=== PATIENT | male | born 1945 | race American Indian/Alaskan Native ===

== ENCOUNTER 2021-08-17 05:56 | Emergency (ER) | payer MEDICARE, OTHER ==
[2021-08-17] MEDS ORDERED: PHENAZOPYRIDINE 200 MG TAB PO ONE (07:03)
[2021-08-17] MEDS ORDERED: cephALEXin 500 MG CAP PO ONE (07:03)
--- NOTE | 2021-08-17 07:03 | Emergency Department Report ---
ED Male HPI - General Chief complaint: Urogenital-Male Stated complaint: PAIN AT ROSA CATHETER SITE Time Seen by Provider: 08/17/21 06:44 Source: patient Mode of arrival: Ambulatory Limitations: No Limitations - History of Present Illness Initial comments: Chief complaint: Irritation and swelling at the catheter site HPI: This is a 75-year-old male with history of CABG, hypertension, lumbar degenerative disc disease who presents with irritation at the Rosa catheter site. Rosa catheter was placed at this hospital while admitted for CHF exacer bation. According to electronic medical record patient was evaluated by urologist while admitted to the hospital service. The radiologist specifically said do not remove Rosa in his treatment plan. Follow-up appointment scheduled for Friday. Patient has irritation at the Rosa site especially with movement. He denies fever abdominal pain or new back pain. MD Complaint: other (Irritation at the Rosa catheter site) -: Gradual Severity: mild Quality: burning Consistency: constant Improves with: none Worsens with: movement denies other symptoms - Related Data Home Medications Medication Instructions Recorded Confirmed Last Taken Aspirin EC [Halfprin EC] 81 mg PO BID 11/21/16 08/13/21 08/10/21 B Complex 1 tab PO DAILY 11/21/16 08/13/21 08/10/21 Cholecalciferol (Vitamin D3) 1,000 unit PO DAILY 11/21/16 08/13/21 08/10/21 Docusate Sodium 100 mg PO BID 11/21/16 08/13/21 08/10/21 Glucosamine & Chondroitin Cap 1 tab PO DAILY 11/21/16 08/13/21 08/10/21 Omega3,5,6,7,9 No.1/[place] Oil 1 cap PO DAILY 11/21/16 08/13/21 08/10/21 [Complete Kite Softgel] Vitamin C 500 mg PO DAILY 11/21/16 08/13/21 08/10/21 Amlodipine Besylate 10 mg PO DAILY 08/10/21 08/13/21 08/09/21 Baclofen 5 mg PO DAILY PRN 08/10/21 08/13/21 08/06/21 Cetirizine HCl 10 mg PO DAILY 08/10/21 08/13/21 08/10/21 Furosemide 20 mg PO DAILY 08/10/21 08/13/21 08/10/21 Latanoprost 0.005% 1 drop OU DAILY 08/10/21 08/13/21 08/09/21 Rosuvastatin (Nf) 40 mg PO HS 08/10/21 08/13/21 08/10/21 Dextran 70/Hypromellose 1 each OP PRN PRN 08/13/21 08/13/21 08/08/21 [Artificial Tears] Ointment Base No.104 [Hydrophilic 1 applic TP BID 08/13/21 08/13/21 08/10/21 Ointment Base] Tamsulosin [Flomax] 0.4 mg PO QDAY 08/13/21 08/13/21 08/09/21 Ubidecarenone [Co Q-10] 200 mg PO QDAY 08/13/21 08/13/21 08/10/21 Previous Rx's Medication Instructions Recorded Last Taken Type carvediloL [Coreg] 3.125 mg PO BID@0800,1700 #60 08/13/21 Unknown Rx tablet hydrALAZINE [Apresoline TAB] 50 mg PO Q8HR #90 tablet 08/13/21 Unknown Rx Phenazopyridine [Pyridium] 200 mg PO TID 2 Days #6 tab 08/17/21 Unknown Rx cephALEXin [Keflex] 500 mg PO TID 7 Days #21 capsule 08/17/21 Unknown Rx Allergies Allergy/AdvReac Type Severity Reaction Status Date / Time No Known Allergies Allergy Verified 08/13/21 10:09 ED Review of Systems ROS: Stated complaint: PAIN AT ROSA CATHETER SITE Other details as noted in HPI Comment: All other systems reviewed and negative Constitutional: denies: chills, fever, malaise Respiratory: denies: cough, shortness of breath Gastrointestinal: denies: abdominal pain, nausea, vomiting ED Past Medical Hx - Past Medical History Previous Medical History?: Yes Hx Hypertension: Yes Hx Arthritis: Yes Additional medical history: Buldging disc in back x 2 - Surgical History Past Surgical History?: Yes Hx Open Heart Surgery: Yes Additional Surgical History: Left hip replacement - Social History Smoking Status: Never Smoker - Medications Home Medications: Home Medications Medication Instructions Recorded Confirmed Last Taken Type Aspirin EC [Halfprin EC] 81 mg PO BID 11/21/16 08/13/21 08/10/21 History B Complex 1 tab PO DAILY 11/21/16 08/13/2108/10/21 History Cholecalciferol (Vitamin D3) 1,000 unit PO DAILY 11/21/16 08/13/21 08/10/21 History Docusate Sodium 100 mg PO BID 11/21/16 08/13/21 08/10/21 History Glucosamine & Chondroitin Cap 1 tab PO DAILY 11/21/16 08/13/21 08/10/21 History Omega3,5,6,7,9 No.1/[place] Oil 1 cap PO DAILY 11/21/16 08/13/21 08/10/21 History [Complete Kite Softgel] Vitamin C 500 mg PO DAILY 11/21/16 08/13/21 08/10/21 History Amlodipine Besylate 10 mg PO DAILY 08/10/21 08/13/21 08/09/21 History Baclofen 5 mg PO DAILY PRN 08/10/21 08/13/21 08/06/21 History Cetirizine HCl 10 mg PO DAILY 08/10/21 08/13/21 08/10/21 History Furosemide 20 mg PO DAILY 08/10/21 08/13/21 08/10/21 History Latanoprost 0.005% 1 drop OU DAILY 08/10/21 08/13/21 08/09/21 History Rosuvastatin (Nf) 40 mg PO HS 08/10/21 08/13/21 08/10/21 History Dextran 70/Hypromellose 1 each OP PRN PRN 08/13/21 08/13/21 08/08/21 History [Artificial Tears] Ointment Base No.104 [Hydrophilic 1 applic TP BID 08/13/21 08/13/21 08/10/21 History Ointment Base] Tamsulosin [Flomax] 0.4 mg PO QDAY 08/13/21 08/13/21 08/09/21 History Ubidecarenone [Co Q-10] 200 mg PO QDAY 08/13/21 08/13/21 08/10/21 History carvediloL [Coreg] 3.125 mg PO BID@0800,1700 #60 08/13/21 Unknown Rx tablet hydrALAZINE [Apresoline TAB] 50 mg PO Q8HR #90 tablet 08/13/21 Unknown Rx Phenazopyridine [Pyridium] 200 mg PO TID 2 Days #6 tab 08/17/21 Unknown Rx cephALEXin [Keflex] 500 mg PO TID 7 Days #21 capsule 08/17/21 Unknown Rx ED Physical Exam - General Limitations: No Limitations General appearance: alert, in no apparent distress - Head Head exam: Present: atraumatic, normocephalic - Eye Eye exam: Present: normal appearance - ENT ENT exam: Present: mucous membranes moist - Neck Neck exam: Present: normal inspection - Respiratory Respiratory exam: Present: normal lung sounds bilaterally. Absent: respiratory distress, wheezes - Cardiovascular Cardiovascular Exam: Present: regular rate, normal rhythm, normal heart sounds. Absent: systolic murmur, diastolic murmur, rubs, gallop - GI/Abdominal GI/Abdominal exam: Present: soft, normal bowel sounds. Absent: distended, tenderness, rebound - Rectal Rectal exam: Present: deferred - exam: Present: normal inspection. Absent: testicular tenderness, urethral discharge, scrotal swelling, vertical testicular lie, other External exam: Absent: normal external exam - Extremities Exam Extremities exam: Present: normal inspection - Back Exam Back exam: Present: normal inspection - Neurological Exam Neurological exam: Present: alert, oriented X3 - Psychiatric Psychiatric exam: Present: normal affect, normal mood - Skin Skin exam: Present: warm, dry, intact, normal color. Absent: rash ED Medical Decision Making - Medical Decision Making Irritation of Rosa catheter site: will treat for UTI. Patient given Keflex and Pyridium in the emergency department prescription for the same. Rosa catheter in place. Urine is draining appropriately. Critical care attestation.: If time is entered above; I have spent that time in minutes in the direct care of this critically ill patient, excluding procedure time. ED Disposition Clinical Impression: Complication of Rosa catheter Disposition: HOME / SELF CARE / HOMELESS Is pt being admited?: No Does the pt Need Aspirin: No Condition: Stable Instructions: Indwelling Urinary Catheter Care, Adult, [id number] Prescriptions: cephALEXin [Keflex] 500 mg PO TID 7 Days #21 capsule Phenazopyridine [Pyridium] 200 mg PO TID 2 Days #6 tab
== END 2021-08-17 07:37 | disposition home or self-care (01) ==
LOC: ED 05:56
DX: T83.84XA Pain due to genitourinary prosthetic devices, implants and grafts, initial encounter (principal); I10 Essential (primary) hypertension; Z87.39 Personal history of other diseases of the musculoskeletal system and connective tissue
CPT/HCPCS: 99282